=== PATIENT | male | born 1985 | race African-American/Black ===

== ENCOUNTER 2017-07-20 00:43 | Emergency (ER) | payer BC ==
[~2017-07-20] VITALS: Ht 177.8 cm; Wt 77.1 kg
--- NOTE | ~2017-07-20 | EKG ---
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 : 1985 Requested By: Deacon Silva Order Number: [id number] MD: Keny Walters Measurements Intervals [place] Rate: 78 P: 54 WV: 163 QRS: 103 QRSD: 115 T: 53 QT: 362 QTc: 413 Interpretive Statements Sinus rhythm Nonspecific intraventricular conduction delay ST elev, probable normal early repol pattern No previous ECG available for comparison Electronically Signed On 07-20-2017 9:12:03 E COMMERCE STRATEGIST by Keny Walters [email or web address] <ELECTRONICALLY SIGNED> By: Keny Walters MD, [facility] 07/20/17 0912 0128 0128 Keny Walters MD, FACC /EPI
[~2017-07-20 00:43] MED LIST: ALEVE220 MG PO; AMOXICILLIN 50500 M1 PO; AMOXICILLIN 50500 MG PO; AMOXICILLIN500 M1 PO; AMOXIL 875 MG875 M1 PO; AURALGAN EAR DR14 ML OT; BUTALB-APAP-CA1 EACH PO; COMPAZINE10 MG PO; FLONASE 0.05%50 MCG NASAL; FLONASE 0.05%50 MCG NS; NASAL SPRAY30 ML; NOHOMEMEDICATIONS; SUDAFED 12 HOU120 MG PO; TRAMADOL 50 MG50 MG PO; TYLENOL SINUS1 EAC1; [UNRECOGNIZED DRUG - REMARK]
[2017-07-20] MEDS ORDERED: BENZTROPINE MES1 MG PO (00:49)
[2017-07-20] MEDS ORDERED: LITHIUM CARBON600 MG PO (00:49)
[2017-07-20] MEDS ORDERED: LOXAPINE10 MG PO (00:49)
[2017-07-20 01:45] LABS: AMP/METHAMP Negative (Negative); BARBITURATES Negative (Negative); BENZODIAZEPINES Negative (Negative); COCAINE Negative (Negative); METHADONE Negative (Negative); OPIATES Negative (Negative); PCP Negative (Negative)
== END 2017-07-20 02:29 | disposition home or self-care (01) ==
LOC: ER 00:43
PROVIDERS: Emergency Medicine
DX: I10 Essential (primary) hypertension (principal); R06.02 Shortness of breath; R42 Dizziness and giddiness; F17.210 Nicotine dependence, cigarettes, uncomplicated

== ENCOUNTER 2018-01-05 06:36 | Emergency (ER) | payer BC ==
[~2018-01-05] VITALS: Ht 175.3 cm; Wt 74.8 kg
--- NOTE | ~2018-01-05 | EKG ---
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: KF : 1985 Requested By: Gilda Leal Order Number: [id number] MD: Tobin Pak Measurements Intervals [place] Rate: 60 P: 44 MS: 162 QRS: 92 QRSD: 114 T: 58 QT: 405 QTc: 405 Interpretive Statements Sinus rhythm Incomplete right bundle branch block Compared to ECG 07/20/2017 01:28:05 Incomplete right bundle-branch block now present Intraventricular conduction delay no longer present ST (T wave) deviation no longer present Electronically Signed On 01-05-2018 11:06:42 CDT by Tobin Pak [email or web address] <ELECTRONICALLY SIGNED> By: Tobin Pak MD 01/05/18 1106 D: 07/704 4 Tobin Pak MD /DANN
[~2018-01-05 06:36] MED LIST changes: +BENZTROPINE MES1 MG PO; +LITHIUM CARBON600 MG PO; +LOXAPINE10 MG PO
[2018-01-05] MEDS ORDERED: HYDROCHLOROTHIA25 M2 PO (06:44)
[2018-01-05] MEDS ORDERED: LOPRESSOR25 PO (07:05)
[2018-01-05 07:30] VITALS: BP 129/89
== END 2018-01-05 07:47 | disposition home or self-care (01) ==
LOC: ER 06:36
DX: I10 Essential (primary) hypertension (principal); R42 Dizziness and giddiness; F17.210 Nicotine dependence, cigarettes, uncomplicated

== ENCOUNTER 2019-06-14 12:29 | Emergency (ER) | payer BC ==
[~2019-06-14] VITALS: Ht 175.3 cm; Wt 88.5 kg
[~2019-06-14 12:29] MED LIST changes: +HYDROCHLOROTHIA25 M2 PO; +LOPRESSOR25 PO
[2019-06-14 14:10] VITALS: BP 127/80
== END 2019-06-14 14:10 | disposition home or self-care (01) ==
LOC: ER 12:29
DX: J06.9 Acute upper respiratory infection, unspecified (principal); I10 Essential (primary) hypertension; F17.210 Nicotine dependence, cigarettes, uncomplicated

== ENCOUNTER 2021-05-17 16:19 | Emergency (ER) | payer BC ==
[~2021-05-17] VITALS: Ht 175.3 cm; Wt 81.7 kg
[2021-05-17 16:24] VITALS: BP 124/76
[2021-05-17] MEDS ORDERED: ONDANSETRON HCL4 M2 PO (17:26)
== END 2021-05-17 17:26 | disposition home or self-care (01) ==
LOC: ER 16:19
PROVIDERS: Emergency Medicine
DX: R11.2 Nausea with vomiting, unspecified (principal); Z20.822 Contact with and (suspected) exposure to COVID-19; R50.9 Fever, unspecified; I10 Essential (primary) hypertension; F17.210 Nicotine dependence, cigarettes, uncomplicated; Z79.899 Other long term (current) drug therapy

== ENCOUNTER 2021-06-05 15:41 | Emergency (ER) | payer BC ==
[~2021-06-05] VITALS: Ht 177.8 cm; Wt 80.3 kg
[~2021-06-05 15:41] MED LIST changes: +ONDANSETRON HCL4 M2 PO
[2021-06-05 15:50] VITALS: BP 121/82
== END 2021-06-05 16:19 | disposition home or self-care (01) ==
LOC: ER 15:41
PROVIDERS: Nurse Practitioner
DX: Z20.822 Contact with and (suspected) exposure to COVID-19 (principal); I10 Essential (primary) hypertension; F17.210 Nicotine dependence, cigarettes, uncomplicated; Z98.890 Other specified postprocedural states; Z79.891 Long term (current) use of opiate analgesic; Z79.899 Other long term (current) drug therapy

== ENCOUNTER 2021-07-13 13:20 | Emergency (ER) | payer BC ==
[~2021-07-13] VITALS: Ht 175.3 cm; Wt 81.7 kg
== END 2021-07-13 15:03 | disposition left against medical advice (07) ==
LOC: ER 13:20
PROVIDERS: Emergency Medicine
DX: U07.1 COVID-19 (principal); I10 Essential (primary) hypertension; F17.210 Nicotine dependence, cigarettes, uncomplicated; Z79.899 Other long term (current) drug therapy